=== PATIENT | male | born 1955 | race Caucasian/White ===

== ENCOUNTER → 2021-09-30 10:23 | Outpatient (BNVA) | payer BC, SELFPAY | PROVIDERS: PCP Nurse Practitioner Family; Visit Provider Nurse Practitioner Family ==

== ENCOUNTER → 2022-03-17 14:02 | Outpatient (BNVA) | payer MEDICARE, SELFPAY | PROVIDERS: PCP Nurse Practitioner Family; Visit Provider Nurse Practitioner Family | DX: G47.33 Obstructive sleep apnea (adult) (pediatric) (principal); G20 Parkinson's disease; Z99.89 Dependence on other enabling machines and devices | CPT/HCPCS: 99212 ==

== ENCOUNTER → 2022-07-14 09:33 | Outpatient (BNVA) | payer MEDICARE, SELFPAY | PROVIDERS: PCP Nurse Practitioner Family; Visit Provider Nurse Practitioner Family | DX: G20 Parkinson's disease (principal); G47.33 Obstructive sleep apnea (adult) (pediatric) | CPT/HCPCS: 99212 ==

== ENCOUNTER → 2022-11-12 11:15 | Outpatient (BNVA) | payer MEDICARE, SELFPAY | PROVIDERS: PCP Nurse Practitioner Family; Visit Provider Nurse Practitioner Family | DX: G20 Parkinson's disease (principal) | CPT/HCPCS: 99212 ==

== ENCOUNTER 2023-05-11 11:36 | Outpatient (AMB) | payer MEDICARE, SELFPAY ==
--- NOTE | 2023-05-11 11:43 | A.OFFVIS_ITS ---
Intake Vital Signs 05/11/23 11:44 Weight 211 lb 6 oz BP 124/70 Blood Pressure Location Lt brachial Position Sitting Pulse 62 Pulse Source Pulse Oximeter Pulse Oximetry (%) 95 Oxygen Delivery Method Room Air Intake Visit Reasons: 6mFollow up-Confirmed Intake Note: Pt presents today for parkinson and ROSHAN fup. No new complaints Allergies amoxicillin Allergy (Mild, Verified 05/11/23 11:48) Rash erythromycin base Allergy (Unknown, Verified 05/11/23 11:48) Hives Medication List - Last Reconciled 05/11/23 by KIMMY Hawley aflibercept (Eylea) 2 mg intravitreal Q4W cetirizine (Zyrtec) 10 mg PO DAILY fluconazole mg PO 2XW fluoxetine 10mg on even days and 15mg on odd days orally daily; lactobacillus combination no.9 (Adult 50 Plus Probiotic) 4,000 mmu cells PO DAILY multivitamin 1 tab PO DAILY HPI HPI Comments History of Present Illness Details 67-yr-old male presents for f/u visit. Pt denies any significant interval medical history changes. Pt's current PD medication regimen: None ADL's: Ind- maybe things are a little slower. Swallowing: No issues Drooling: None Orthostatic lightheadedness: Noticing some dizziness- spinning Constipation: None Freezing: None Stiffness: Sometimes Tremor: Has BUE tremor- can have difficulty threading a fishing line Falls: None Hallucinations: None Memory: He may miss some information told to him- had his hearing checked which was normal. Sleep: Sleeping well w/ CPAP. Last PAP compliance report shows 100% use and residual AHI 2.3/hr. Exercise: Regularly exercising. 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 Will do the [employer] in the fall. Big program in Nov. Mood: May be more easily flustered or agitated- more if tired. Has started going to a [facility] support group. Other: Urinary frequency and urgency. PFSH Surgical History Hx of sinus surgery History of back surgery No pertinent past surgical history Family History Mother Alcoholism Arthritis Anemia Father No problems noted. Daughter Asthma Son No problems noted. Social History (Reviewed 05/11/23 @ 11:49 by Tonya Leung Alcohol intake: never Patient Tobacco Use Status: Never used Tobacco Review of Systems Const All systems reviewed & are unremarkable except as noted in HPI and below Physical Exam Vital Signs: Last Vital Signs Pulse 62 05/11/23 11:44 BP 142/80 H 05/11/23 11:44 Pulse Ox 95 05/11/23 11:44 Oxygen Delivery Method Room Air 05/11/23 11:44 Const General: cooperative and no acute distress Resp Effort & Inspection: normal respiratory effort and able to speak in complete sentences Neuro Other: General: patient oriented x3, normal cognition Expression: Ok Voice: mild soft voice Tremor: BUE postural tremor- more so on left FFM: decreased Foot taps- decreased fluidity Tone: No significant tone. Gait: Slight stoop, slight decreased arm swing, shorter steps, knees bent, steady gait. Psych: Pleasant affect Motor exam (neuro): 5/5 motor strength present throughout Assessment & Plan Assessment & Plan (1) Parkinson's disease: Code(s): G20 - Parkinson's disease (2) Obstructive sleep apnea: Code(s): G47.33 - Obstructive sleep apnea (adult) (pediatric) Plan Pt is not interested in starting dopaminergic tx at this time. Continue exercise. Continue cognitively stimulating activities. Pt may be interested in watching the Rare Pink video. For urinary s/s- pt may benefit from DENEEN maldonado. Continue CPAP 14 cmH2O > 4 hrs nightly, as pt has been experiencing good clinical effect from use. f/u in 6 months or sooner prn. Coding Level of Care Code Est Pt Level 4 (92328) Diagnoses Parkinson's disease G20 Obstructive sleep apnea G47.33
[2023-05-11 11:44] VITALS: BP 124/70; PULSE 62; O2SAT 95
== END 2023-05-11 12:31 | disposition home or self-care (01) ==
PROVIDERS: Visit Provider Nurse Practitioner Family
DX: G20.A1 Parkinson's disease without dyskinesia, without mention of fluctuations (principal); G47.33 Obstructive sleep apnea (adult) (pediatric)
CPT/HCPCS: 99214

== ENCOUNTER → 2023-05-11 11:36 | Outpatient (BNVA) | payer MEDICARE, SELFPAY | PROVIDERS: Visit Provider Nurse Practitioner Family | DX: G20.A1 Parkinson's disease without dyskinesia, without mention of fluctuations (principal); G47.33 Obstructive sleep apnea (adult) (pediatric) | CPT/HCPCS: 99212 ==

== ENCOUNTER → 2023-11-09 11:28 | Outpatient (BNVA) | payer MEDICARE, SELFPAY | PROVIDERS: PCP Nurse Practitioner Family; Visit Provider Nurse Practitioner Family | DX: G20.A1 Parkinson's disease without dyskinesia, without mention of fluctuations (principal); G47.33 Obstructive sleep apnea (adult) (pediatric); K59.00 Constipation, unspecified | CPT/HCPCS: 99212 ==

== ENCOUNTER 2025-05-02 11:20 | Outpatient (AMB) | payer MEDICARE, SELFPAY ==
--- NOTE | 2025-05-02 11:44 | MHC.OFFVIS ---
Vital Signs 05/02/25 11:56 Height 5 ft 10.5 in Weight 219 lb 6 oz BMI 31.0 BP 136/82 Blood Pressure Location Lt brachial Position Sitting Pulse 61 Pulse Source Pulse Oximeter Pulse Oximetry (%) 96 Oxygen Delivery Method Room Air Intake Visit Reasons: CPAP replacement unit - follow up Intake Note: Patient presents follow up ROSHAN. He needs new machine RX with same setting to [facility]. Compliance in chart(89/90days, >=4hrs-98%, Average Usage- 7hr 50min, Pressure- 14cm, Med Leaks-1.9, AHI-2.0) Accompanied by: Self / Same As Patient Allergies amoxicillin Allergy (Mild, Verified 05/02/25 11:55) Rash erythromycin base Allergy (Unknown, Verified 05/02/25 11:55) Hives HPI Comments Details: 69-yr-old male presents for f/u visit of Essential Tremors and sleep apnea evalaution. [facility]TON scan was negative for Parkinsons Disorder, [facility], Dr. Wadsworth. ROSHAN Compliance report reviewed with pt. 01/2025- 04/2025 Average use is 89/90 days and >4 hours 98%, daily use 7hr and 50min. Press [id number] Leaks 1.9cmH20 and AHI is 2.0/hr. He washes his mask, rinses his hoses, changes filters and fills reservoir with water. Pt. denies any significant interval medical history changes. He says the cpap machine is now starting to make some noises and he is afraid it will stop working on him. He goes to bed at 10pm, and wakes up at 7am with zero bathroom breaks. He denies morning headaches, bruxism, jaw pain and Parasomnias. He feels refreshed in the morning with his cpap use and has more energy. Snoring has been eliminated with use. Denies RLS / PLMD / NREM disorders. Memory is stable, mood and diet stable. He has mild depression and takes 20mg of fluoxetine every other day. He goes to the [facility] and still does exercises with his support group, along with circuit strength training exercises. Denies constipation, BM are normal, denies GI upset, since his last colonoscopy and diverticulitis flare. [facility] Medical History Parkinson's disease Surgical History Hx of sinus surgery History of back surgery No pertinent past surgical history Family History Mother Alcoholism Arthritis Anemia Father No problems noted. Daughter Asthma Son No problems noted. Social History Alcohol intake: never Patient Tobacco Use Status: Never used Tobacco Physical Exam Vital Signs: Last Vital Signs Pulse 61 05/02/25 11:56 BP 136/82 05/02/25 11:56 Pulse Ox 96 05/02/25 11:56 Oxygen Delivery Method Room Air 05/02/25 11:56 BMI result Body Mass Index 31.0 Const General: cooperative and no acute distress Orientation/consciousness: patient oriented x3 Eyes Pupils: Equal, round and reactive pupils present Resp Effort & Inspection: normal respiratory effort and able to speak in complete sentences Neuro Other: General: patient oriented x3, normal cognition Voice Hypophonia Tremor: BUE postural tremor, L>R FFM mildly decreased, Foot taps good Gait: Slight stoop, slight decreased arm swing, shorter steps, knees bent, steady gait. Psych: Pleasant affect General: patient oriented x3 and moves all extremities Cranial nerves: Yes Equal, round and reactive pupils present, Yes Normal accommodation reflex present, Yes Normal facial strength present, Yes Midline tongue present, Yes Ability to bilaterally rotate head present and Yes Ability to bilaterally elevate shoulders present Cognition (Neuro): normal cognition Gait exam (Neuro): Normal gait present and Other gait observations present (stooped good stride.) Motor exam (neuro): 5/5 motor strength present throughout and Normal motor muscle tone present throughout Psych Appearance: grossly normal Attitude: cooperative Thought process: Normal thought process present Results Reviewed Results Reviewed: ROSHAN Compliance report reviewed with pt. 01/2025- 04/2025 Average use is 89/90 days and >4 hours 98%, daily use 7hr and 50min. Press [id number] Leaks 1.9cmH20 and AHI is 2.0/hr. He washes his mask, rinses his hoses, changes filters and fills reservoir with water. Assessment & Plan Assessment & Plan (1) Obstructive sleep apnea: Code(s): G47.33 - Obstructive sleep apnea (adult) (pediatric) Category: Medical (2) Constipation: Code(s): K59.00 - Constipation, unspecified Category: Medical Qualifiers: Constipation type: slow transit constipation Qualified Code(s): K59.01 - Slow transit constipation (3) Excessive daytime sleepiness: Code(s): G47.19 - Other hypersomnia Category: Medical Plan ROSHAN on cpap Continue CPAP 14 cmH2O > 4 hrs nightly, as pt has been experiencing good clinical effect from use. HST will be required to get new machine as his machine is starting to make some noises. RX sent to [facility] for new machine and supplies. Constipation start senna, miralax, prune juice and increase water intake. Request labs from pcp. f/u in 6 months or sooner prn. Orders: Orders RT home sleep study Today G47.19 - Other hypersomnia Patient Instructions: Sleep Hygiene provided: set a scheduled bedtime and wake time to help regulate the circadian rhythm and balance the release of pituitary hormones. Sleep in a dark room, temperatures below 68 degrees, and no devices n bed. Limit caffeinated products 6 hours prior to bed, and limit fluids 2-4 hours prior to bed. Gentle night yoga, diffusing essential oils, and playing soft music can be relaxing. Coding Level of Care Code Est Pt Level 4 (03041) Diagnoses Obstructive sleep apnea G47.33 Slow transit constipation K59.01 Constipation type: slow transit constipation Excessive daytime sleepiness G47.19
[2025-05-02 11:56] VITALS: BP 136/82; PULSE 61; O2SAT 96; BMI 31.0
== END 2025-05-02 12:20 | disposition home or self-care (01) ==
LOC: HO.HSMC 11:21
PROVIDERS: PCP Nurse Practitioner Family; Visit Provider Physician Assistant Medical
DX: G47.33 Obstructive sleep apnea (adult) (pediatric) (principal); K59.01 Slow transit constipation; G47.19 Other hypersomnia
CPT/HCPCS: 99214

== ENCOUNTER → 2025-05-02 11:20 | Outpatient (BNVA) | payer MEDICARE, SELFPAY | PROVIDERS: PCP Nurse Practitioner Family; Visit Provider Physician Assistant Medical | DX: G47.33 Obstructive sleep apnea (adult) (pediatric) (principal); Z99.89 Dependence on other enabling machines and devices; K59.01 Slow transit constipation; G47.19 Other hypersomnia | CPT/HCPCS: 99212 ==